=== PATIENT | male | born 1935 | race Caucasian/White ===

== ENCOUNTER → 2017-10-16 | Outpatient (CLI) | payer MEDICARE, MEDICAID ==
[2017-10-16 14:55] LABS: BASO # 0.1 10^3/uL (0.0-0.2); BASO % 1.1 % (0.0-1.0); EOS % 0.4 % (0.0-3.0); HEMATOCRIT 51.1 % (42.0-52.0); HEMOGLOBIN 17.8 g/dl (13.5-17.5); IMMATURE GRANULOCYTE % 0.2 % (0-3.0); LYMPH # 1.8 10^3/uL (1.5-4.5); LYMPH % 33.3 % (24.0-44.0); MEAN CORPUSCULAR HEMOGLOBIN 31.3 pg (27.0-33.0); MEAN CORPUSCULAR HGB CONC 34.8 g/dl (32.0-36.5); MONO # 0.6 10^3/uL (0.0-0.8); MONO % 11.8 % (0.0-5.0); NEUTROPHILS # 2.9 10^3/uL (1.8-7.7); NEUTROPHILS % 53.2 % (36.0-66.0); PLATELET COUNT, AUTOMATED 235 10^3/uL (150-450); RED BLOOD COUNT 5.68 10^6/uL (4.30-6.10); RED CELL DISTRIBUTION WIDTH 13.2 % (11.5-14.5); WHITE BLOOD COUNT 5.4 10^3/uL (4.0-10.0)
[2017-10-16 15:25] LABS: ALBUMIN 3.8 GM/DL (3.2-5.2); ALBUMIN/GLOBULIN RATIO 0.88 (1.00-1.93); ALKALINE PHOSPHATASE 105 U/L (45-117); ALT/SGPT 23 U/L (12-78); ANION GAP 6 MEQ/L (8-16); AST/SGOT 29 U/L (7-37); BILIRUBIN,TOTAL 1.4 MG/DL (0.2-1.0); BLOOD UREA NITROGEN 18 MG/DL (7-18); CALCIUM LEVEL 9.4 MG/DL (8.8-10.2); CARBON DIOXIDE LEVEL 31 MEQ/L (21-32); CHLORIDE LEVEL 104 MEQ/L (98-107); CREATININE FOR GFR 1.07 MG/DL (0.70-1.30); GLOMERULAR FILTRATION RATE > 60.0 (>35); GLUCOSE, FASTING 109 MG/DL (70-100); POTASSIUM SERUM 3.2 MEQ/L (3.5-5.1); SODIUM LEVEL 141 MEQ/L (136-145); TOTAL PROTEIN 8.1 GM/DL (6.4-8.2)
== END ==
LOC: M LAB 14:18
DX: I10 Essential (primary) hypertension (principal); Z51.81 Encounter for therapeutic drug level monitoring; Z79.899 Other long term (current) drug therapy
CPT/HCPCS: 80053

== ENCOUNTER → 2017-12-08 | Outpatient (CLI) | payer MEDICARE, MEDICAID ==
[2017-12-08 15:22] LABS: ALBUMIN 3.5 GM/DL (3.2-5.2); ALBUMIN/GLOBULIN RATIO 0.97 (1.00-1.93); ALKALINE PHOSPHATASE 94 U/L (45-117); ALT/SGPT 45 U/L (12-78); ANION GAP 10 MEQ/L (8-16); AST/SGOT 53 U/L (7-37); BLOOD UREA NITROGEN 23 MG/DL (7-18); CALCIUM LEVEL 8.4 MG/DL (8.8-10.2); CARBON DIOXIDE LEVEL 26 MEQ/L (21-32); CHLORIDE LEVEL 107 MEQ/L (98-107); CREATININE FOR GFR 1.13 MG/DL (0.70-1.30); GLOMERULAR FILTRATION RATE > 60.0 (>35); GLUCOSE, FASTING 106 MG/DL (70-100); POTASSIUM SERUM 3.7 MEQ/L (3.5-5.1); SODIUM LEVEL 143 MEQ/L (136-145); TOTAL PROTEIN 7.1 GM/DL (6.4-8.2)
== END ==
LOC: M LAB 14:47
DX: E87.6 Hypokalemia (principal); R06.02 Shortness of breath; J84.9 Interstitial pulmonary disease, unspecified
CPT/HCPCS: 71046

== ENCOUNTER 2017-12-11 09:19 | Emergency (ER) | payer MEDICARE, MEDICAID ==
[2017-12-11 10:17] LABS: BASO % 0.5 % (0.0-1.0); EOS % 0.3 % (0.0-3.0); HEMOGLOBIN 16.9 g/dl (13.5-17.5); IMMATURE GRANULOCYTE % 0.2 % (0-3.0); LYMPH # 1.7 10^3/uL (1.5-4.5); LYMPH % 25.3 % (24.0-44.0); MEAN CORPUSCULAR HEMOGLOBIN 31.4 pg (27.0-33.0); MEAN CORPUSCULAR HGB CONC 35.2 g/dl (32.0-36.5); MEAN CORPUSCULAR VOLUME 89.1 fl (80.0-96.0); MONO # 0.6 10^3/uL (0.0-0.8); MONO % 8.3 % (0.0-5.0); NEUTROPHILS # 4.4 10^3/uL (1.8-7.7); NEUTROPHILS % 65.4 % (36.0-66.0); PLATELET COUNT, AUTOMATED 228 10^3/uL (150-450); RED BLOOD COUNT 5.39 10^6/uL (4.30-6.10); RED CELL DISTRIBUTION WIDTH 13.7 % (11.5-14.5); WHITE BLOOD COUNT 6.7 10^3/uL (4.0-10.0)
[2017-12-11 10:58] LABS: ALBUMIN 3.5 GM/DL (3.2-5.2); ALBUMIN/GLOBULIN RATIO 0.83 (1.00-1.93); ALKALINE PHOSPHATASE 86 U/L (45-117); ALT/SGPT 50 U/L (12-78); ANION GAP 11 MEQ/L (8-16); AST/SGOT 57 U/L (7-37); BILIRUBIN,DIRECT 0.5 MG/DL (0.0-0.2); BILIRUBIN,TOTAL 2.1 MG/DL (0.2-1.0); BLOOD UREA NITROGEN 15 MG/DL (7-18); CALCIUM LEVEL 8.5 MG/DL (8.8-10.2); CARBON DIOXIDE LEVEL 24 MEQ/L (21-32); CHLORIDE LEVEL 102 MEQ/L (98-107); GLOMERULAR FILTRATION RATE > 60.0 (>35); GLUCOSE, FASTING 113 MG/DL (70-100); SODIUM LEVEL 137 MEQ/L (136-145); TOTAL PROTEIN 7.7 GM/DL (6.4-8.2)
[2017-12-11 11:16] LABS: POTASSIUM SERUM 2.9 MEQ/L (3.5-5.1)
[2017-12-11 11:24] LABS: CPK CREATINE PHOSPHOKINASE 560 U/L (39-308); TROPONIN I 0.13 NG/ML (< 0.10)
[2017-12-11 11:25] LABS: CK-MB VALUE MASS 14.7 NG/ML (<3.6); MB/CK RELATIVE INDEX 2.62 (< OR =4); NT-PRO BNP 7288 PG/ML (<450)
== END 2017-12-11 11:22 | disposition left against medical advice (07) ==
LOC: M ED 09:19
DX: R06.00 Dyspnea, unspecified (principal); I10 Essential (primary) hypertension; F41.9 Anxiety disorder, unspecified; Z79.899 Other long term (current) drug therapy
CPT/HCPCS: 82550

== ENCOUNTER 2017-12-17 00:21 | Inpatient (IN) | payer MEDICARE, MEDICAID ==
[2017-12-17 00:54] LABS: VENOUS HCO3 27.3 MEQ/L (23.0-27.0); VENOUS O2 SATURATION 38.9 % (60.0-80.0); VENOUS PARTIAL PRESSURE O2 26.2 mmHg (30.0-50.0); VENOUS PH 7.329 UNITS (7.330-7.430); VENOUS STANDARD HCO3 22.7 MEQ/L; VENOUS TOTAL CO2 28.9 MEQ/L (24.0-28.0)
[2017-12-17 00:55] LABS: BASO # 0.1 10^3/uL (0.0-0.2); BASO % 0.5 % (0.0-1.0); EOS # 0.1 10^3/uL (0.0-0.50); EOS % 0.7 % (0.0-3.0); HEMATOCRIT 51.9 % (42.0-52.0); HEMOGLOBIN 17.5 g/dl (13.5-17.5); IMMATURE GRANULOCYTE % 0.2 % (0-3.0); LYMPH # 1.7 10^3/uL (1.5-4.5); MEAN CORPUSCULAR HEMOGLOBIN 31.6 pg (27.0-33.0); MEAN CORPUSCULAR HGB CONC 33.7 g/dl (32.0-36.5); MEAN CORPUSCULAR VOLUME 93.9 fl (80.0-96.0); MONO # 0.4 10^3/uL (0.0-0.8); MONO % 4.2 % (0.0-5.0); NEUTROPHILS # 7.9 10^3/uL (1.8-7.7); NEUTROPHILS % 77.4 % (36.0-66.0); PLATELET COUNT, AUTOMATED 226 10^3/uL (150-450); RED BLOOD COUNT 5.53 10^6/uL (4.30-6.10); RED CELL DISTRIBUTION WIDTH 14.6 % (11.5-14.5); WHITE BLOOD COUNT 10.2 10^3/uL (4.0-10.0)
[2017-12-17] MEDS: LORazepam 2 MG/ML VIAL (J2060) IV ×2 (00:58→07:15)
[2017-12-17] MEDS: ASPIRIN 81 MG CHEW TABLET PO (01:12)
[2017-12-17 01:22] LABS: ANION GAP 9 MEQ/L (8-16); BLOOD UREA NITROGEN 21 MG/DL (7-18); CALCIUM LEVEL 8.9 MG/DL (8.8-10.2); CARBON DIOXIDE LEVEL 30 MEQ/L (21-32); CHLORIDE LEVEL 102 MEQ/L (98-107); CK-MB VALUE MASS 10.6 NG/ML (<3.6); CPK CREATINE PHOSPHOKINASE 399 U/L (39-308); CREATININE FOR GFR 1.31 MG/DL (0.70-1.30); GLUCOSE, FASTING 125 MG/DL (70-100); MB/CK RELATIVE INDEX 2.65 (< OR =4); NT-PRO BNP 7234 PG/ML (<450); POTASSIUM SERUM 3.2 MEQ/L (3.5-5.1); SODIUM LEVEL 141 MEQ/L (136-145); TROPONIN I 0.16 NG/ML (< 0.10)
[2017-12-17] MEDS ORDERED: ISOVUE-370 76% 100ML VIAL (Q9967) As Ordered (01:53)
[2017-12-17 06:52] LABS: CK-MB VALUE MASS 5.8 NG/ML (<3.6); CPK CREATINE PHOSPHOKINASE 273 U/L (39-308); MB/CK RELATIVE INDEX 2.12 (< OR =4); TROPONIN I 0.18 NG/ML (< 0.10)
[2017-12-17 07:06] LABS: C REACTIVE PROTEIN QUANTITATIV 1.99 MG/DL (0.00-0.30)
[2017-12-17] MEDS: FUROSEMIDE 40 MG/4 ML VIAL (J1940) IV (07:15)
[2017-12-17] MEDS ORDERED: ONDANSETRON 4MG/2ML VIAL (J2405) IV (08:45)
[2017-12-17] MEDS ORDERED: VANCOMYCIN HCL 750 MG, VIAL MATE ADAPTER 1 EACH in D5W 250 ML IV (09:00)
[2017-12-17 09:28] LABS: APPEARANCE, URINE CLEAR (CLEAR); BACTERIA, URINE AUTO NEGATIVE (NEGATIVE); BILIRUBIN, URINE AUTO NEGATIVE (NEGATIVE); BLOOD, URINE BLOOD NEGATIVE (NEGATIVE); COLOR, URINE YELLOW (YELLOW); GLUCOSE, URINE (UA) AUTO NEGATIVE (NEGATIVE); KETONE, URINE AUTO NEGATIVE (NEGATIVE); LEUKOCYTE ESTERASE, URINE AUTO NEGATIVE (NEGATIVE); NITRITE, URINE AUTO NEGATIVE (NEGATIVE); PROTEIN, URINE AUTO 1+ mg/dL (NEGATIVE); RBC, URINE AUTO 3 /HPF (0-3); SPECIFIC GRAVITY URINE AUTO 1.016 (1.002-1.035); SQUAMOUS EPITHELIAL CELL UR AU 0 /HPF (0-6); UROBILINOGEN, URINE AUTO 0.2 mg/dL (0.0-2.0); WBC, URINE AUTO 0 /HPF (0-3)
[2017-12-17] MEDS: PIPERACILLIN/TAZOBACTAM SOD 3.375 GM in D5W MINI-BAG PLUS 50 ML IV ×3 (09:43→21:51)
[2017-12-17 09:44] LABS: ABG BASE EXCESS 1.6 (-2.0-2.0); ABG HCO3 23.5 MEQ/L (22.0-26.0); ABG O2 SATURATION 96.4 % (95.0-99.0); ABG PARTIAL PRESSURE CO2 30.6 mmHg (35.0-45.0); ABG PARTIAL PRESSURE O2 77.2 mmHg (75.0-100.0); ABG STANDARD HCO3 25.8 MEQ/L (22.0-26.0); ABG TOTAL CO2 24.4 MEQ/L (23.0-31.0); ABG pH (ARTERIAL) 7.503 UNITS (7.350-7.450)
[2017-12-17] MEDS: HEPARIN SOD (PORCINE) 5000 UNITS/ML VIAL SC ×3 (09:59→21:50)
[2017-12-17] MEDS: ACETAMINOPHEN TAB 650MG DOSE (2X325MG) PO ×2 (10:00→17:43)
[2017-12-17] MEDS: POTASSIUM CHLORIDE 10 MEQ SR TABLET PO ×3 (10:00→23:01)
[2017-12-17] MEDS: VANCOMYCIN HCL 1,000 MG, VIAL MATE ADAPTER 1 EACH in D5W 250 ML IV ×2 (11:18→12:31)
[2017-12-17] MEDS: TAMSULOSIN 0.4 MG CAP PO (12:31)
[2017-12-17 14:02] LABS: HEMATOCRIT 49.1 % (42.0-52.0); HEMOGLOBIN 16.5 g/dl (13.5-17.5); MEAN CORPUSCULAR HEMOGLOBIN 31.2 pg (27.0-33.0); MEAN CORPUSCULAR HGB CONC 33.6 g/dl (32.0-36.5); MEAN CORPUSCULAR VOLUME 92.8 fl (80.0-96.0); PLATELET COUNT, AUTOMATED 168 10^3/uL (150-450); RED BLOOD COUNT 5.29 10^6/uL (4.30-6.10); RED CELL DISTRIBUTION WIDTH 14.6 % (11.5-14.5); WHITE BLOOD COUNT 4.1 10^3/uL (4.0-10.0)
[2017-12-17 14:14] LABS: ADD MANUAL DIFFER YES; DIFF SLIDE NUMBER 133; POSITIVE MORPH POS FLAG
[2017-12-17 14:27] LABS: ALBUMIN 2.7 GM/DL (3.2-5.2); ALBUMIN/GLOBULIN RATIO 0.84 (1.00-1.93); ALKALINE PHOSPHATASE 60 U/L (45-117); ALT/SGPT 41 U/L (12-78); ANION GAP 11 MEQ/L (8-16); AST/SGOT 43 U/L (7-37); BANDS 14 % (< 11); BILIRUBIN,TOTAL 4.5 MG/DL (0.2-1.0); BLOOD UREA NITROGEN 20 MG/DL (7-18); CALCIUM LEVEL 8.2 MG/DL (8.8-10.2); CARBON DIOXIDE LEVEL 28 MEQ/L (21-32); CHLORIDE LEVEL 103 MEQ/L (98-107); CK-MB VALUE MASS 3.1 NG/ML (<3.6); CPK CREATINE PHOSPHOKINASE 215 U/L (39-308); GLOMERULAR FILTRATION RATE 51.9 (>35); GLUCOSE, FASTING 98 MG/DL (70-100); LYMPHOCYTES 18 % (16-52); MB/CK RELATIVE INDEX 1.44 (< OR =4); MONOCYTES 8 % (0-8); NEUTROPHILS 60 % (35-75); PLATELET ESTIMATE NORMAL (NORMAL); POIKILOCYTOSIS 1+; POTASSIUM SERUM 3.1 MEQ/L (3.5-5.1); SODIUM LEVEL 142 MEQ/L (136-145); TOTAL PROTEIN 5.9 GM/DL (6.4-8.2)
[2017-12-17 14:42] LABS: LACTIC ACID SEPSIS PROTOCOL 4.8 MMOL/L (0.4-2.0)
[2017-12-17] MEDS: NS 1,000 ML IV (16:04)
[2017-12-17] MEDS: NS 500 ML IV ×2 (18:15→21:53)
[2017-12-17 18:57] LABS: ANION GAP 9 MEQ/L (8-16); BLOOD UREA NITROGEN 24 MG/DL (7-18); CALCIUM LEVEL 7.9 MG/DL (8.8-10.2); CARBON DIOXIDE LEVEL 29 MEQ/L (21-32); CHLORIDE LEVEL 103 MEQ/L (98-107); CREATININE FOR GFR 1.65 MG/DL (0.70-1.30); GLOMERULAR FILTRATION RATE 42.9 (>35); GLUCOSE, FASTING 101 MG/DL (70-100); POTASSIUM SERUM 3.1 MEQ/L (3.5-5.1); SODIUM LEVEL 141 MEQ/L (136-145)
[2017-12-17 20:22] LABS: LACTIC ACID SEPSIS PROTOCOL 3.6 MMOL/L (0.4-2.0)
[2017-12-17 22:59] LABS: MAGNESIUM LEVEL 1.8 MG/DL (1.8-2.4)
[2017-12-18] MEDS: NS 1,000 ML IV (00:01)
[2017-12-18 01:19] LABS: CK-MB VALUE MASS 4.2 NG/ML (<3.6); CPK CREATINE PHOSPHOKINASE 255 U/L (39-308); MB/CK RELATIVE INDEX 1.64 (< OR =4); TROPONIN I 0.51 NG/ML (< 0.10)
[2017-12-18] MEDS: PIPERACILLIN/TAZOBACTAM SOD 3.375 GM in D5W MINI-BAG PLUS 50 ML IV ×4 (02:16→20:28)
[2017-12-18] MEDS: ASPIRIN 81 MG ENTERIC TAB PO ×2 (02:17→09:12)
[2017-12-18 05:48] LABS: HEMATOCRIT 48.3 % (42.0-52.0); HEMOGLOBIN 16.6 g/dl (13.5-17.5); MEAN CORPUSCULAR HEMOGLOBIN 31.6 pg (27.0-33.0); MEAN CORPUSCULAR HGB CONC 34.4 g/dl (32.0-36.5); PLATELET COUNT, AUTOMATED 159 10^3/uL (150-450); RED BLOOD COUNT 5.25 10^6/uL (4.30-6.10); RED CELL DISTRIBUTION WIDTH 14.8 % (11.5-14.5)
[2017-12-18 05:56] LABS: ADD MANUAL DIFFER YES; DIFF SLIDE NUMBER 54; POSITIVE MORPH POS FLAG
[2017-12-18 06:14] LABS: ANION GAP 9 MEQ/L (8-16); BLOOD UREA NITROGEN 29 MG/DL (7-18); CALCIUM LEVEL 7.8 MG/DL (8.8-10.2); CARBON DIOXIDE LEVEL 23 MEQ/L (21-32); CHLORIDE LEVEL 106 MEQ/L (98-107); CPK CREATINE PHOSPHOKINASE 274 U/L (39-308); CREATININE FOR GFR 1.39 MG/DL (0.70-1.30); GLOMERULAR FILTRATION RATE 52.3 (>35); GLUCOSE, FASTING 85 MG/DL (70-100); MAGNESIUM LEVEL 1.8 MG/DL (1.8-2.4); POTASSIUM SERUM 4.1 MEQ/L (3.5-5.1); SODIUM LEVEL 138 MEQ/L (136-145); TROPONIN I 0.66 NG/ML (< 0.10)
[2017-12-18 06:15] LABS: CK-MB VALUE MASS 7.2 NG/ML (<3.6); MB/CK RELATIVE INDEX 2.62 (< OR =4)
[2017-12-18] MEDS: HEPARIN SOD (PORCINE) 5000 UNITS/ML VIAL SC ×2 (06:18→13:01)
[2017-12-18 06:31] LABS: ATYPICAL LYMPH 1 % (0-5); BANDS 13 % (< 11); LYMPHOCYTES 20 % (16-52); MONOCYTES 9 % (0-8); NEUTROPHILS 57 % (35-75); PLATELET ESTIMATE NORMAL (NORMAL)
[2017-12-18 06:32] LABS: ANISOCYTOSIS 1+
[2017-12-18] MEDS: TAMSULOSIN 0.4 MG CAP PO (09:12)
[2017-12-18] MEDS ORDERED: LORazepam 0.5 MG TAB PO (09:15)
[2017-12-18] MEDS: LORazepam 2 MG/ML VIAL (J2060) IV (09:57)
[2017-12-18] MEDS: VANCOMYCIN HCL 1,000 MG, VIAL MATE ADAPTER 1 EACH in D5W 250 ML IV (13:00)
[2017-12-18] MEDS ORDERED: MIDAZOLAM INJ 2 MG/2 ML VIAL (J2250) As Ordered ×2 (14:25)
[2017-12-18] MEDS ORDERED: AMIODARONE HCL 150 MG/100 ML PREMIXED BAG (NEXTERONE) As Ordered (14:29)
[2017-12-18] MEDS: MIDAZOLAM INJ 2 MG/2 ML VIAL (J2250) IV (14:30)
[2017-12-18] MEDS: MAG SULF 1GM/100ML (MAG RUN) 1 GM in APPROPRIATE DILUENT 1 EA IV (15:01)
[2017-12-18] MEDS: AMIODARONE HCL 360 MG in APPROPRIATE DILUENT 1 EA IV ×2 (15:02→20:28)
[2017-12-18] MEDS: AMIODARONE HCL 150 MG in APPROPRIATE DILUENT 1 EA IV (15:02)
[2017-12-18 15:07] LABS: ABG BASE EXCESS -3.8 (-2.0-2.0); ABG HCO3 16.9 MEQ/L (22.0-26.0); ABG O2 SATURATION 99.9 % (95.0-99.0); ABG PARTIAL PRESSURE CO2 22.7 mmHg (35.0-45.0); ABG PARTIAL PRESSURE O2 243.7 mmHg (75.0-100.0); ABG STANDARD HCO3 21.5 MEQ/L (22.0-26.0); ABG TOTAL CO2 17.6 MEQ/L (23.0-31.0); ABG pH (ARTERIAL) 7.489 UNITS (7.350-7.450)
[2017-12-18 15:16] LABS: HEMATOCRIT 48.8 % (42.0-52.0); HEMOGLOBIN 16.5 g/dl (13.5-17.5); MEAN CORPUSCULAR HEMOGLOBIN 31.6 pg (27.0-33.0); MEAN CORPUSCULAR HGB CONC 33.8 g/dl (32.0-36.5); MEAN CORPUSCULAR VOLUME 93.5 fl (80.0-96.0); PLATELET COUNT, AUTOMATED 154 10^3/uL (150-450); RED BLOOD COUNT 5.22 10^6/uL (4.30-6.10); RED CELL DISTRIBUTION WIDTH 14.9 % (11.5-14.5); WHITE BLOOD COUNT 12.3 10^3/uL (4.0-10.0)
[2017-12-18 15:24] LABS: ADD MANUAL DIFFER YES; DIFF SLIDE NUMBER 332; POSITIVE MORPH POS FLAG
[2017-12-18 15:27] LABS: CPK CREATINE PHOSPHOKINASE 262 U/L (39-308)
[2017-12-18 15:29] LABS: CK-MB VALUE MASS 5.8 NG/ML (<3.6); INR 1.67; MB/CK RELATIVE INDEX 2.21 (< OR =4); PROTHROMBIN TIME 20.2 SECONDS (12.4-14.5)
[2017-12-18] MEDS ORDERED: HEPARIN SOD (PORCINE) 5000 UNITS/ML VIAL IV (15:30)
[2017-12-18 15:39] LABS: ALBUMIN 2.2 GM/DL (3.2-5.2); ALBUMIN/GLOBULIN RATIO 0.71 (1.00-1.93); ALKALINE PHOSPHATASE 50 U/L (45-117); ALT/SGPT 33 U/L (12-78); ANION GAP 10 MEQ/L (8-16); AST/SGOT 44 U/L (7-37); BILIRUBIN,TOTAL 4.4 MG/DL (0.2-1.0); BLOOD UREA NITROGEN 32 MG/DL (7-18); CALCIUM LEVEL 7.6 MG/DL (8.8-10.2); CARBON DIOXIDE LEVEL 25 MEQ/L (21-32); CHLORIDE LEVEL 103 MEQ/L (98-107); CK-MB VALUE MASS 5.7 NG/ML (<3.6); CPK CREATINE PHOSPHOKINASE 267 U/L (39-308); CREATININE FOR GFR 1.47 MG/DL (0.70-1.30); GLOMERULAR FILTRATION RATE 49.1 (>35); GLUCOSE, FASTING 156 MG/DL (70-100); MAGNESIUM LEVEL 2.1 MG/DL (1.8-2.4); MB/CK RELATIVE INDEX 2.13 (< OR =4); POTASSIUM SERUM 4.2 MEQ/L (3.5-5.1); SODIUM LEVEL 138 MEQ/L (136-145); TOTAL PROTEIN 5.3 GM/DL (6.4-8.2); TROPONIN I 0.75 NG/ML (< 0.10)
[2017-12-18 15:51] LABS: BANDS 16 % (< 11); LYMPHOCYTES 6 % (16-52); MONOCYTES 4 % (0-8); NEUTROPHILS 74 % (35-75)
[2017-12-18 15:52] LABS: PLATELET ESTIMATE NORMAL (NORMAL)
[2017-12-18] MEDS ORDERED: AMIODARONE 150MG/3ML INJ (J0282) (15:52)
[2017-12-18 16:10] LABS: ERYTHROCYTE SEDIMENTATION RATE 2 mm/hr (0-20)
[2017-12-18 16:13] LABS: PARTIAL THROMBOPLASTIN TIME 38.7 SECONDS (26.8-37.9)
[2017-12-18] MEDS: HEPARIN DRIP 25,000 UNITS in APPROPRIATE DILUENT 1 EA IV (16:33)
[2017-12-18] MEDS: ALPRAZolam 0.25 MG TAB PO (17:28)
[2017-12-18] MEDS: FUROSEMIDE 100 MG/10 ML VIAL (J1940) IV (18:19)
[2017-12-18] MEDS: ACETAMINOPHEN TAB 650MG DOSE (2X325MG) PO (19:43)
[2017-12-18] MEDS: ALPRAZolam 0.5 MG TAB PO (20:29)
[2017-12-18 21:57] LABS: PARTIAL THROMBOPLASTIN TIME 102.3 SECONDS (26.8-37.9)
[2017-12-19] MEDS: ALPRAZolam 0.5 MG TAB PO ×5 (00:18→20:36)
[2017-12-19] MEDS: ACETAMINOPHEN TAB 650MG DOSE (2X325MG) PO (00:19)
[2017-12-19] MEDS: PIPERACILLIN/TAZOBACTAM SOD 3.375 GM in D5W MINI-BAG PLUS 50 ML IV ×3 (03:37→14:49)
[2017-12-19 04:15] LABS: PARTIAL THROMBOPLASTIN TIME 99.5 SECONDS (26.8-37.9)
[2017-12-19 06:14] LABS: HEMATOCRIT 45.7 % (42.0-52.0); HEMOGLOBIN 15.7 g/dl (13.5-17.5); MEAN CORPUSCULAR HGB CONC 34.4 g/dl (32.0-36.5); MEAN CORPUSCULAR VOLUME 93.1 fl (80.0-96.0); PLATELET COUNT, AUTOMATED 143 10^3/uL (150-450); RED BLOOD COUNT 4.91 10^6/uL (4.30-6.10); RED CELL DISTRIBUTION WIDTH 14.8 % (11.5-14.5); WHITE BLOOD COUNT 16.5 10^3/uL (4.0-10.0)
[2017-12-19 06:18] LABS: ADD MANUAL DIFFER YES; DIFF SLIDE NUMBER 34; POSITIVE MORPH POS FLAG
[2017-12-19 06:57] LABS: ANION GAP 11 MEQ/L (8-16); BANDS 6 % (< 11); BLOOD UREA NITROGEN 42 MG/DL (7-18); CALCIUM LEVEL 7.7 MG/DL (8.8-10.2); CARBON DIOXIDE LEVEL 24 MEQ/L (21-32); CHLORIDE LEVEL 104 MEQ/L (98-107); GLOMERULAR FILTRATION RATE 38.8 (>35); GLUCOSE, FASTING 117 MG/DL (70-100); LYMPHOCYTES 10 % (16-52); MAGNESIUM LEVEL 2.5 MG/DL (1.8-2.4); MONOCYTES 4 % (0-8); NEUTROPHILS 80 % (35-75); POTASSIUM SERUM 3.7 MEQ/L (3.5-5.1); SODIUM LEVEL 139 MEQ/L (136-145); TROPONIN I 0.56 NG/ML (< 0.10)
[2017-12-19 06:58] LABS: CRENATED RBC 1+; PLATELET ESTIMATE NORMAL (NORMAL)
[2017-12-19] MEDS: HEPARIN DRIP 25,000 UNITS in APPROPRIATE DILUENT 1 EA IV ×2 (07:53→23:55)
[2017-12-19] MEDS: AMIODARONE HCL 360 MG in APPROPRIATE DILUENT 1 EA IV (07:53)
[2017-12-19] MEDS: TAMSULOSIN 0.4 MG CAP PO (08:15)
[2017-12-19 12:44] LABS: VANCOMYCIN LEVEL TROUGH 7.9 UG/ML (10.0-20.0)
[2017-12-19] MEDS: VANCOMYCIN HCL 1,000 MG, VIAL MATE ADAPTER 1 EACH in D5W 250 ML IV (13:35)
[2017-12-19] MEDS: CEFEPIME HCL 2 GM in D5W MINI-BAG PLUS 50 ML IV (17:31)
[2017-12-20] MEDS: ALPRAZolam 0.5 MG TAB PO ×2 (03:09→08:39)
[2017-12-20] MEDS: CEFEPIME HCL 2 GM in D5W MINI-BAG PLUS 50 ML IV ×2 (05:10→17:10)
[2017-12-20 05:23] LABS: HEMATOCRIT 41.6 % (42.0-52.0); HEMOGLOBIN 14.5 g/dl (13.5-17.5); MEAN CORPUSCULAR HEMOGLOBIN 32.2 pg (27.0-33.0); MEAN CORPUSCULAR HGB CONC 34.9 g/dl (32.0-36.5); MEAN CORPUSCULAR VOLUME 92.2 fl (80.0-96.0); PLATELET COUNT, AUTOMATED 134 10^3/uL (150-450); RED BLOOD COUNT 4.51 10^6/uL (4.30-6.10); RED CELL DISTRIBUTION WIDTH 14.6 % (11.5-14.5)
[2017-12-20 05:24] LABS: ADD MANUAL DIFFER YES; DIFF SLIDE NUMBER 26; POSITIVE MORPH POS FLAG
[2017-12-20 05:46] LABS: ANION GAP 8 MEQ/L (8-16); BLOOD UREA NITROGEN 47 MG/DL (7-18); CALCIUM LEVEL 7.8 MG/DL (8.8-10.2); CARBON DIOXIDE LEVEL 28 MEQ/L (21-32); CHLORIDE LEVEL 102 MEQ/L (98-107); CREATININE FOR GFR 1.37 MG/DL (0.70-1.30); GLOMERULAR FILTRATION RATE 53.2 (>35); GLUCOSE, FASTING 87 MG/DL (70-100); MAGNESIUM LEVEL 2.2 MG/DL (1.8-2.4); POTASSIUM SERUM 3.5 MEQ/L (3.5-5.1); SODIUM LEVEL 138 MEQ/L (136-145)
[2017-12-20 06:58] LABS: BANDS 5 % (< 11); EOSINOPHILS 1 % (0-5); LYMPHOCYTES 9 % (16-52); MONOCYTES 3 % (0-8); NEUTROPHILS 82 % (35-75); PLATELET ESTIMATE NORMAL (NORMAL)
[2017-12-20 06:59] LABS: PLATELET CLUMPS SMALL AMT
[2017-12-20] MEDS: TAMSULOSIN 0.4 MG CAP PO (08:39)
[2017-12-20] MEDS: AMIODARONE 200 MG TAB (PACERONE) PO ×2 (08:39→20:10)
[2017-12-20] MEDS: ASPIRIN 81 MG ENTERIC TAB PO (08:39)
[2017-12-20] MEDS: FUROSEMIDE 100 MG/10 ML VIAL (J1940) IV (08:40)
[2017-12-20] MEDS: VANCOMYCIN HCL 1,000 MG, VIAL MATE ADAPTER 1 EACH in D5W 250 ML IV (12:26)
[2017-12-20 12:45] LABS: PARTIAL THROMBOPLASTIN TIME 84.2 SECONDS (26.8-37.9)
[2017-12-20 14:04] LABS: VANCOMYCIN LEVEL TROUGH 10.8 UG/ML (10.0-20.0)
[2017-12-20] MEDS: HEPARIN DRIP 25,000 UNITS in APPROPRIATE DILUENT 1 EA IV (14:20)
[2017-12-20] MEDS ORDERED: SLF 3 ML SYR IV (18:15)
[2017-12-20] MEDS ORDERED: SODIUM CHLORIDE 0.9% INJ 10 ML SYR IV (18:15)
[2017-12-20] MEDS: SODIUM CHLORIDE 0.9% INJ 10 ML SYR IV (20:11)
[2017-12-20] MEDS: SLF 3 ML SYR IV (20:11)
[2017-12-20 21:02] LABS: PARTIAL THROMBOPLASTIN TIME 65.6 SECONDS (26.8-37.9)
[2017-12-21] MEDS: ACETAMINOPHEN TAB 650MG DOSE (2X325MG) PO (03:41)
[2017-12-21] MEDS: CEFEPIME HCL 2 GM in D5W MINI-BAG PLUS 50 ML IV ×2 (04:34→17:14)
[2017-12-21] MEDS: VANCOMYCIN HCL 1,000 MG, VIAL MATE ADAPTER 1 EACH in D5W 250 ML IV ×2 (05:42→23:49)
[2017-12-21] MEDS: HEPARIN DRIP 25,000 UNITS in APPROPRIATE DILUENT 1 EA IV ×2 (05:46→18:29)
[2017-12-21 06:10] LABS: BASO # 0.1 10^3/uL (0.0-0.2); BASO % 0.4 % (0.0-1.0); EOS # 0.1 10^3/uL (0.0-0.50); EOS % 0.9 % (0.0-3.0); HEMATOCRIT 41.1 % (42.0-52.0); HEMOGLOBIN 13.9 g/dl (13.5-17.5); LYMPH # 1.3 10^3/uL (1.5-4.5); LYMPH % 10.2 % (24.0-44.0); MEAN CORPUSCULAR HEMOGLOBIN 31.3 pg (27.0-33.0); MEAN CORPUSCULAR HGB CONC 33.8 g/dl (32.0-36.5); MEAN CORPUSCULAR VOLUME 92.6 fl (80.0-96.0); MONO % 7.8 % (0.0-5.0); NEUTROPHILS # 10.3 10^3/uL (1.8-7.7); NEUTROPHILS % 79.7 % (36.0-66.0); PLATELET COUNT, AUTOMATED 128 10^3/uL (150-450); RED BLOOD COUNT 4.44 10^6/uL (4.30-6.10); RED CELL DISTRIBUTION WIDTH 14.5 % (11.5-14.5); WHITE BLOOD COUNT 12.9 10^3/uL (4.0-10.0)
[2017-12-21 06:21] LABS: PARTIAL THROMBOPLASTIN TIME 92.1 SECONDS (26.8-37.9)
[2017-12-21 06:27] LABS: ANION GAP 7 MEQ/L (8-16); BLOOD UREA NITROGEN 39 MG/DL (7-18); CALCIUM LEVEL 8.2 MG/DL (8.8-10.2); CARBON DIOXIDE LEVEL 30 MEQ/L (21-32); CHLORIDE LEVEL 100 MEQ/L (98-107); CREATININE FOR GFR 1.23 MG/DL (0.70-1.30); GLOMERULAR FILTRATION RATE > 60.0 (>35); GLUCOSE, FASTING 106 MG/DL (70-100); MAGNESIUM LEVEL 2.2 MG/DL (1.8-2.4); POTASSIUM SERUM 3.2 MEQ/L (3.5-5.1); SODIUM LEVEL 137 MEQ/L (136-145)
[2017-12-21] MEDS: SLF 3 ML SYR IV ×3 (08:08→21:25)
[2017-12-21] MEDS: SODIUM CHLORIDE 0.9% INJ 10 ML SYR IV ×3 (08:08→21:24)
[2017-12-21] MEDS: POTASSIUM CHLORIDE 10 MEQ SR TABLET PO (08:10)
[2017-12-21] MEDS: AMIODARONE 200 MG TAB (PACERONE) PO ×2 (09:36→20:12)
[2017-12-21] MEDS: ASPIRIN 81 MG ENTERIC TAB PO (09:36)
[2017-12-21] MEDS: TAMSULOSIN 0.4 MG CAP PO (09:36)
[2017-12-22] MEDS: CEFEPIME HCL 2 GM in D5W MINI-BAG PLUS 50 ML IV (05:00)
[2017-12-22] MEDS: SLF 3 ML SYR IV ×3 (05:14→20:19)
[2017-12-22] MEDS: SODIUM CHLORIDE 0.9% INJ 10 ML SYR IV (05:14)
[2017-12-22 05:19] LABS: BASO # 0.1 10^3/uL (0.0-0.2); BASO % 0.7 % (0.0-1.0); EOS # 0.1 10^3/uL (0.0-0.50); HEMATOCRIT 42.7 % (42.0-52.0); HEMOGLOBIN 14.5 g/dl (13.5-17.5); IMMATURE GRANULOCYTE % 2.2 % (0-3.0); LYMPH # 1.2 10^3/uL (1.5-4.5); LYMPH % 13.3 % (24.0-44.0); MEAN CORPUSCULAR HEMOGLOBIN 31.3 pg (27.0-33.0); MEAN CORPUSCULAR VOLUME 92.2 fl (80.0-96.0); MONO % 10.8 % (0.0-5.0); NEUTROPHILS # 6.4 10^3/uL (1.8-7.7); PLATELET COUNT, AUTOMATED 152 10^3/uL (150-450); RED BLOOD COUNT 4.63 10^6/uL (4.30-6.10); RED CELL DISTRIBUTION WIDTH 14.6 % (11.5-14.5); WHITE BLOOD COUNT 8.8 10^3/uL (4.0-10.0)
[2017-12-22 05:32] LABS: PARTIAL THROMBOPLASTIN TIME 85.1 SECONDS (26.8-37.9)
[2017-12-22 05:42] LABS: ANION GAP 8 MEQ/L (8-16); BLOOD UREA NITROGEN 27 MG/DL (7-18); CALCIUM LEVEL 7.9 MG/DL (8.8-10.2); CARBON DIOXIDE LEVEL 30 MEQ/L (21-32); CHLORIDE LEVEL 103 MEQ/L (98-107); CREATININE FOR GFR 0.88 MG/DL (0.70-1.30); GLOMERULAR FILTRATION RATE > 60.0 (>35); GLUCOSE, FASTING 88 MG/DL (70-100); MAGNESIUM LEVEL 1.9 MG/DL (1.8-2.4); POTASSIUM SERUM 3.4 MEQ/L (3.5-5.1); SODIUM LEVEL 141 MEQ/L (136-145)
[2017-12-22] MEDS: TAMSULOSIN 0.4 MG CAP PO (09:15)
[2017-12-22] MEDS: ASPIRIN 81 MG ENTERIC TAB PO (09:15)
[2017-12-22] MEDS: AMIODARONE 200 MG TAB (PACERONE) PO ×2 (09:15→20:19)
[2017-12-22] MEDS: POTASSIUM CHLORIDE 10 MEQ SR TABLET PO (09:15)
[2017-12-22] MEDS: NYSTATIN 500,000 U/5 ML SUSP UDC SS ×2 (16:51→20:19)
[2017-12-22 17:28] LABS: VANCOMYCIN LEVEL TROUGH 9.9 UG/ML (10.0-20.0)
[2017-12-22] MEDS: VANCOMYCIN HCL 1,000 MG, VIAL MATE ADAPTER 1 EACH in D5W 250 ML IV (17:57)
[2017-12-23] MEDS: VANCOMYCIN HCL 1,000 MG, VIAL MATE ADAPTER 1 EACH in D5W 250 ML IV ×2 (05:13→16:07)
[2017-12-23] MEDS: SLF 3 ML SYR IV ×3 (05:13→21:31)
[2017-12-23 05:49] LABS: ANION GAP 5 MEQ/L (8-16); BLOOD UREA NITROGEN 20 MG/DL (7-18); CALCIUM LEVEL 7.8 MG/DL (8.8-10.2); CARBON DIOXIDE LEVEL 31 MEQ/L (21-32); CHLORIDE LEVEL 106 MEQ/L (98-107); CREATININE FOR GFR 0.82 MG/DL (0.70-1.30); GLOMERULAR FILTRATION RATE > 60.0 (>35); GLUCOSE, FASTING 107 MG/DL (70-100); MAGNESIUM LEVEL 1.8 MG/DL (1.8-2.4); POTASSIUM SERUM 3.6 MEQ/L (3.5-5.1); SODIUM LEVEL 142 MEQ/L (136-145)
[2017-12-23] MEDS: NYSTATIN 500,000 U/5 ML SUSP UDC SS ×3 (09:00→21:30)
[2017-12-23] MEDS: AMIODARONE 200 MG TAB (PACERONE) PO ×2 (09:00→21:31)
[2017-12-23] MEDS: ASPIRIN 81 MG ENTERIC TAB PO (09:00)
[2017-12-23] MEDS: TAMSULOSIN 0.4 MG CAP PO (09:00)
[2017-12-23] MEDS: DOCUSATE SODIUM 100 MG CAP PO ×2 (13:13→21:31)
[2017-12-23] MEDS: MIRALAX *UNIT DOSE* 17GM PACKET PO (13:13)
[2017-12-23] MEDS: HEPARIN SOD (PORCINE) 5000 UNITS/ML VIAL SQ ×2 (16:07→21:30)
[2017-12-24] MEDS: HEPARIN SOD (PORCINE) 5000 UNITS/ML VIAL SQ ×3 (05:06→21:21)
[2017-12-24] MEDS: VANCOMYCIN HCL 1,000 MG, VIAL MATE ADAPTER 1 EACH in D5W 250 ML IV ×2 (05:06→18:15)
[2017-12-24] MEDS: SLF 3 ML SYR IV ×3 (05:06→21:21)
[2017-12-24 05:51] LABS: ANION GAP 8 MEQ/L (8-16); BLOOD UREA NITROGEN 16 MG/DL (7-18); CARBON DIOXIDE LEVEL 30 MEQ/L (21-32); CHLORIDE LEVEL 104 MEQ/L (98-107); CREATININE FOR GFR 0.79 MG/DL (0.70-1.30); GLOMERULAR FILTRATION RATE > 60.0 (>35); GLUCOSE, FASTING 93 MG/DL (70-100); POTASSIUM SERUM 3.9 MEQ/L (3.5-5.1); SODIUM LEVEL 142 MEQ/L (136-145)
[2017-12-24] MEDS: ASPIRIN 81 MG ENTERIC TAB PO (08:19)
[2017-12-24] MEDS: TAMSULOSIN 0.4 MG CAP PO (08:19)
[2017-12-24] MEDS: DOCUSATE SODIUM 100 MG CAP PO ×2 (08:19→21:20)
[2017-12-24] MEDS: NYSTATIN 500,000 U/5 ML SUSP UDC SS ×3 (08:20→21:20)
[2017-12-24] MEDS: AMIODARONE 200 MG TAB (PACERONE) PO (08:20)
[2017-12-24] MEDS: MIRALAX *UNIT DOSE* 17GM PACKET PO (08:20)
[2017-12-24] MEDS: FUROSEMIDE 20 MG TAB PO (08:20)
[2017-12-24] MEDS: METOPROLOL TART 25 MG TABLET PO ×2 (14:21→21:20)
[2017-12-24 16:05] LABS: HEMATOCRIT 43.7 % (42.0-52.0); HEMOGLOBIN 14.9 g/dl (13.5-17.5); MEAN CORPUSCULAR HEMOGLOBIN 31.4 pg (27.0-33.0); MEAN CORPUSCULAR HGB CONC 34.1 g/dl (32.0-36.5); MEAN CORPUSCULAR VOLUME 92.2 fl (80.0-96.0); PLATELET COUNT, AUTOMATED 208 10^3/uL (150-450); RED BLOOD COUNT 4.74 10^6/uL (4.30-6.10); RED CELL DISTRIBUTION WIDTH 14.5 % (11.5-14.5); WHITE BLOOD COUNT 10.6 10^3/uL (4.0-10.0)
[2017-12-24 16:11] LABS: ADD MANUAL DIFFER YES; DIFF SLIDE NUMBER 106; POSITIVE MORPH POS FLAG
[2017-12-24 17:09] LABS: BEDSIDE GLUCOSE 113 MG/DL (83-110)
[2017-12-24 17:42] LABS: ATYPICAL LYMPH 5 % (0-5); EOSINOPHILS 2 % (0-5); LYMPHOCYTES 9 % (16-52); MONOCYTES 5 % (0-8); NEUTROPHILS 79 % (35-75)
[2017-12-24 17:43] LABS: PLATELET ESTIMATE NORMAL (NORMAL)
[2017-12-24] MEDS: ATORVASTATIN 20 MG TAB PO (21:21)
[2017-12-25] MEDS: SLF 3 ML SYR IV ×3 (05:33→21:24)
[2017-12-25] MEDS: HEPARIN SOD (PORCINE) 5000 UNITS/ML VIAL SQ ×3 (05:33→21:16)
[2017-12-25] MEDS: VANCOMYCIN HCL 1,000 MG, VIAL MATE ADAPTER 1 EACH in D5W 250 ML IV ×2 (05:33→18:51)
[2017-12-25 05:56] LABS: HEMOGLOBIN 13.4 g/dl (13.5-17.5); MEAN CORPUSCULAR HEMOGLOBIN 31.5 pg (27.0-33.0); MEAN CORPUSCULAR HGB CONC 33.5 g/dl (32.0-36.5); MEAN CORPUSCULAR VOLUME 94.1 fl (80.0-96.0); PLATELET COUNT, AUTOMATED 225 10^3/uL (150-450); RED BLOOD COUNT 4.25 10^6/uL (4.30-6.10); RED CELL DISTRIBUTION WIDTH 14.5 % (11.5-14.5); WHITE BLOOD COUNT 11.2 10^3/uL (4.0-10.0)
[2017-12-25 06:20] LABS: ANION GAP 6 MEQ/L (8-16); BLOOD UREA NITROGEN 16 MG/DL (7-18); CALCIUM LEVEL 8.2 MG/DL (8.8-10.2); CARBON DIOXIDE LEVEL 31 MEQ/L (21-32); CHLORIDE LEVEL 102 MEQ/L (98-107); CREATININE FOR GFR 0.97 MG/DL (0.70-1.30); GLOMERULAR FILTRATION RATE > 60.0 (>35); GLUCOSE, FASTING 83 MG/DL (70-100); MAGNESIUM LEVEL 1.8 MG/DL (1.8-2.4); POTASSIUM SERUM 3.6 MEQ/L (3.5-5.1); SODIUM LEVEL 139 MEQ/L (136-145)
[2017-12-25] MEDS: MIRALAX *UNIT DOSE* 17GM PACKET PO (08:49)
[2017-12-25] MEDS: NYSTATIN 500,000 U/5 ML SUSP UDC SS ×3 (08:49→21:17)
[2017-12-25] MEDS: DOCUSATE SODIUM 100 MG CAP PO ×2 (08:50→21:17)
[2017-12-25] MEDS: METOPROLOL TART 25 MG TABLET PO ×2 (08:50→21:00)
[2017-12-25] MEDS: TAMSULOSIN 0.4 MG CAP PO (08:51)
[2017-12-25] MEDS: FUROSEMIDE 20 MG TAB PO (08:51)
[2017-12-25] MEDS: ASPIRIN 81 MG ENTERIC TAB PO (08:51)
[2017-12-25] MEDS: AMIODARONE 200 MG TAB (PACERONE) PO (08:51)
[2017-12-25] MEDS: SODIUM CHLORIDE 0.9% INJ 10 ML SYR IV ×3 (15:14→21:17)
[2017-12-25 17:36] LABS: VANCOMYCIN LEVEL TROUGH 14.2 UG/ML (10.0-20.0)
[2017-12-25] MEDS: ATORVASTATIN 20 MG TAB PO (21:18)
[2017-12-26] MEDS: SLF 3 ML SYR IV ×3 (06:00→21:10)
[2017-12-26 06:11] LABS: HEMATOCRIT 46.6 % (42.0-52.0); HEMOGLOBIN 15.3 g/dl (13.5-17.5); MEAN CORPUSCULAR HEMOGLOBIN 30.8 pg (27.0-33.0); MEAN CORPUSCULAR HGB CONC 32.8 g/dl (32.0-36.5); PLATELET COUNT, AUTOMATED 254 10^3/uL (150-450); RED BLOOD COUNT 4.96 10^6/uL (4.30-6.10); RED CELL DISTRIBUTION WIDTH 14.2 % (11.5-14.5)
[2017-12-26] MEDS: SODIUM CHLORIDE 0.9% INJ 10 ML SYR IV ×3 (06:19→22:00)
[2017-12-26] MEDS: HEPARIN SOD (PORCINE) 5000 UNITS/ML VIAL SQ ×3 (06:19→21:09)
[2017-12-26] MEDS: VANCOMYCIN HCL 1,000 MG, VIAL MATE ADAPTER 1 EACH in D5W 250 ML IV ×2 (06:20→18:03)
[2017-12-26 06:21] LABS: ANION GAP 5 MEQ/L (8-16); BLOOD UREA NITROGEN 17 MG/DL (7-18); CALCIUM LEVEL 8.9 MG/DL (8.8-10.2); CARBON DIOXIDE LEVEL 29 MEQ/L (21-32); CHLORIDE LEVEL 102 MEQ/L (98-107); CREATININE FOR GFR 0.96 MG/DL (0.70-1.30); GLOMERULAR FILTRATION RATE > 60.0 (>35); GLUCOSE, FASTING 83 MG/DL (70-100); MAGNESIUM LEVEL 2.1 MG/DL (1.8-2.4); POTASSIUM SERUM 3.7 MEQ/L (3.5-5.1); SODIUM LEVEL 136 MEQ/L (136-145)
[2017-12-26] MEDS: MIRALAX *UNIT DOSE* 17GM PACKET PO (08:50)
[2017-12-26] MEDS: FUROSEMIDE 20 MG TAB PO (08:50)
[2017-12-26] MEDS: NYSTATIN 500,000 U/5 ML SUSP UDC SS ×3 (08:50→21:09)
[2017-12-26] MEDS: ASPIRIN 81 MG ENTERIC TAB PO (08:50)
[2017-12-26] MEDS: AMIODARONE 200 MG TAB (PACERONE) PO (08:51)
[2017-12-26] MEDS: DOCUSATE SODIUM 100 MG CAP PO ×2 (08:51→21:10)
[2017-12-26] MEDS: TAMSULOSIN 0.4 MG CAP PO (08:51)
[2017-12-26] MEDS: METOPROLOL TART 25 MG TABLET PO ×2 (08:51→21:10)
[2017-12-26] MEDS: traMADol 50 MG TAB PO (15:30)
[2017-12-26] MEDS: ATORVASTATIN 20 MG TAB PO (21:10)
[2017-12-27] MEDS: HEPARIN SOD (PORCINE) 5000 UNITS/ML VIAL SQ ×2 (05:15→15:33)
[2017-12-27] MEDS: SLF 3 ML SYR IV ×3 (05:15→21:28)
[2017-12-27] MEDS: VANCOMYCIN HCL 1,000 MG, VIAL MATE ADAPTER 1 EACH in D5W 250 ML IV ×2 (05:15→18:18)
[2017-12-27 08:01] LABS: HEMATOCRIT 43.9 % (42.0-52.0); HEMOGLOBIN 14.5 g/dl (13.5-17.5); MEAN CORPUSCULAR HEMOGLOBIN 30.9 pg (27.0-33.0); MEAN CORPUSCULAR VOLUME 93.4 fl (80.0-96.0); PLATELET COUNT, AUTOMATED 272 10^3/uL (150-450); RED CELL DISTRIBUTION WIDTH 14.1 % (11.5-14.5); WHITE BLOOD COUNT 10.3 10^3/uL (4.0-10.0)
[2017-12-27 08:18] LABS: ANION GAP 9 MEQ/L (8-16); BLOOD UREA NITROGEN 17 MG/DL (7-18); CALCIUM LEVEL 7.9 MG/DL (8.8-10.2); CARBON DIOXIDE LEVEL 28 MEQ/L (21-32); CHLORIDE LEVEL 104 MEQ/L (98-107); CREATININE FOR GFR 1.02 MG/DL (0.70-1.30); GLOMERULAR FILTRATION RATE > 60.0 (>35); GLUCOSE, FASTING 126 MG/DL (70-100); MAGNESIUM LEVEL 1.8 MG/DL (1.8-2.4); POTASSIUM SERUM 3.8 MEQ/L (3.5-5.1); SODIUM LEVEL 141 MEQ/L (136-145)
[2017-12-27] MEDS: MIRALAX *UNIT DOSE* 17GM PACKET PO (08:28)
[2017-12-27] MEDS: AMIODARONE 200 MG TAB (PACERONE) PO (08:29)
[2017-12-27] MEDS: ASPIRIN 81 MG ENTERIC TAB PO (08:29)
[2017-12-27] MEDS: DOCUSATE SODIUM 100 MG CAP PO ×2 (08:29→21:29)
[2017-12-27] MEDS: NYSTATIN 500,000 U/5 ML SUSP UDC SS ×3 (08:29→21:29)
[2017-12-27] MEDS: FUROSEMIDE 20 MG TAB PO (08:30)
[2017-12-27] MEDS: TAMSULOSIN 0.4 MG CAP PO (08:30)
[2017-12-27] MEDS: METOPROLOL TART 25 MG TABLET PO ×2 (08:30→21:29)
[2017-12-27] MEDS: traMADol 50 MG TAB PO (08:31)
[2017-12-27] MEDS ORDERED: ISOVUE-370 76% 100ML VIAL (Q9967) As Ordered (15:37)
[2017-12-27] MEDS ORDERED: HEPARIN SOD (PORCINE) 5000 UNITS/ML VIAL IV (19:45)
[2017-12-27 20:21] LABS: PARTIAL THROMBOPLASTIN TIME 32.4 SECONDS (26.8-37.9)
[2017-12-27] MEDS: ATORVASTATIN 20 MG TAB PO (21:29)
[2017-12-27] MEDS: HEPARIN DRIP 25,000 UNITS in APPROPRIATE DILUENT 1 EA IV (22:24)
[2017-12-28 05:11] LABS: HEMATOCRIT 44.1 % (42.0-52.0); HEMOGLOBIN 14.6 g/dl (13.5-17.5); MEAN CORPUSCULAR HEMOGLOBIN 30.9 pg (27.0-33.0); MEAN CORPUSCULAR HGB CONC 33.1 g/dl (32.0-36.5); MEAN CORPUSCULAR VOLUME 93.2 fl (80.0-96.0); PLATELET COUNT, AUTOMATED 294 10^3/uL (150-450); RED BLOOD COUNT 4.73 10^6/uL (4.30-6.10); RED CELL DISTRIBUTION WIDTH 13.9 % (11.5-14.5); WHITE BLOOD COUNT 9.3 10^3/uL (4.0-10.0)
[2017-12-28 05:19] LABS: ANION GAP 6 MEQ/L (8-16); BLOOD UREA NITROGEN 16 MG/DL (7-18); CALCIUM LEVEL 8.3 MG/DL (8.8-10.2); CARBON DIOXIDE LEVEL 30 MEQ/L (21-32); CHLORIDE LEVEL 103 MEQ/L (98-107); CREATININE FOR GFR 0.99 MG/DL (0.70-1.30); GLOMERULAR FILTRATION RATE > 60.0 (>35); GLUCOSE, FASTING 101 MG/DL (70-100); MAGNESIUM LEVEL 1.9 MG/DL (1.8-2.4); POTASSIUM SERUM 3.6 MEQ/L (3.5-5.1); SODIUM LEVEL 139 MEQ/L (136-145)
[2017-12-28 05:23] LABS: PARTIAL THROMBOPLASTIN TIME 112.4 SECONDS (26.8-37.9)
[2017-12-28] MEDS: VANCOMYCIN HCL 1,000 MG, VIAL MATE ADAPTER 1 EACH in D5W 250 ML IV (05:58)
[2017-12-28] MEDS: SLF 3 ML SYR IV ×3 (05:58→20:13)
[2017-12-28] MEDS: FUROSEMIDE 20 MG TAB PO (08:37)
[2017-12-28] MEDS: METOPROLOL TART 25 MG TABLET PO ×2 (08:37→20:12)
[2017-12-28] MEDS: TAMSULOSIN 0.4 MG CAP PO (08:37)
[2017-12-28] MEDS: ASPIRIN 81 MG ENTERIC TAB PO (08:37)
[2017-12-28] MEDS: DOCUSATE SODIUM 100 MG CAP PO ×2 (08:37→20:11)
[2017-12-28] MEDS: AMIODARONE 200 MG TAB (PACERONE) PO (08:37)
[2017-12-28] MEDS: MIRALAX *UNIT DOSE* 17GM PACKET PO (08:38)
[2017-12-28] MEDS: NYSTATIN 500,000 U/5 ML SUSP UDC SS ×3 (08:38→20:10)
[2017-12-28 12:28] LABS: PARTIAL THROMBOPLASTIN TIME 105.5 SECONDS (26.8-37.9)
[2017-12-28 14:51] LABS: PARTIAL THROMBOPLASTIN TIME 97.2 SECONDS (26.8-37.9)
[2017-12-28] MEDS: HEPARIN DRIP 25,000 UNITS in APPROPRIATE DILUENT 1 EA IV (15:51)
[2017-12-28] MEDS: ACETAMINOPHEN TAB 650MG DOSE (2X325MG) PO (20:11)
[2017-12-28] MEDS: RIVAROXABAN 15 MG TAB (XARELTO) PO (20:12)
[2017-12-28] MEDS: LINEZOLID 600MG TABLET (ZYVOX) PO (20:12)
[2017-12-28] MEDS: ATORVASTATIN 20 MG TAB PO (20:12)
[2017-12-29 05:29] LABS: HEMATOCRIT 42.7 % (42.0-52.0); HEMOGLOBIN 14.1 g/dl (13.5-17.5); MEAN CORPUSCULAR HEMOGLOBIN 30.7 pg (27.0-33.0); PLATELET COUNT, AUTOMATED 295 10^3/uL (150-450); RED BLOOD COUNT 4.59 10^6/uL (4.30-6.10); WHITE BLOOD COUNT 8.1 10^3/uL (4.0-10.0)
[2017-12-29 05:44] LABS: ANION GAP 8 MEQ/L (8-16); BLOOD UREA NITROGEN 15 MG/DL (7-18); C REACTIVE PROTEIN QUANTITATIV 8.06 MG/DL (0.00-0.30); CALCIUM LEVEL 8.4 MG/DL (8.8-10.2); CARBON DIOXIDE LEVEL 27 MEQ/L (21-32); CHLORIDE LEVEL 105 MEQ/L (98-107); CREATININE FOR GFR 1.02 MG/DL (0.70-1.30); GLOMERULAR FILTRATION RATE > 60.0 (>35); GLUCOSE, FASTING 96 MG/DL (70-100); MAGNESIUM LEVEL 1.8 MG/DL (1.8-2.4); POTASSIUM SERUM 3.4 MEQ/L (3.5-5.1); SODIUM LEVEL 140 MEQ/L (136-145)
[2017-12-29] MEDS: SLF 3 ML SYR IV ×3 (05:55→20:00)
[2017-12-29] MEDS: MIRALAX *UNIT DOSE* 17GM PACKET PO (08:47)
[2017-12-29] MEDS: RIVAROXABAN 15 MG TAB (XARELTO) PO ×2 (08:47→16:58)
[2017-12-29] MEDS: TAMSULOSIN 0.4 MG CAP PO (08:47)
[2017-12-29] MEDS: DOCUSATE SODIUM 100 MG CAP PO ×2 (08:47→20:00)
[2017-12-29] MEDS: LINEZOLID 600MG TABLET (ZYVOX) PO ×2 (08:48→20:00)
[2017-12-29] MEDS: METOPROLOL TART 25 MG TABLET PO ×2 (08:48→19:59)
[2017-12-29] MEDS: FUROSEMIDE 20 MG TAB PO (08:48)
[2017-12-29] MEDS: AMIODARONE 200 MG TAB (PACERONE) PO (08:48)
[2017-12-29] MEDS: ASPIRIN 81 MG ENTERIC TAB PO (08:48)
[2017-12-29] MEDS: NYSTATIN 500,000 U/5 ML SUSP UDC SS ×3 (08:49→19:59)
[2017-12-29] MEDS: POTASSIUM CHLORIDE 10 MEQ SR TABLET PO (08:49)
[2017-12-29] MEDS ORDERED: LORazepam 1 MG TAB PO (15:30)
[2017-12-29] MEDS: ATORVASTATIN 20 MG TAB PO (19:59)
[2017-12-29] MEDS: NITROGLYCERIN 2% OINT 1 GM *U/D* PKT TOP (23:44)
[2017-12-29 23:51] LABS: TROPONIN I 0.06 NG/ML (< 0.10)
[2017-12-30 05:11] LABS: HEMATOCRIT 39.4 % (42.0-52.0); HEMOGLOBIN 13.2 g/dl (13.5-17.5); MEAN CORPUSCULAR HEMOGLOBIN 31.1 pg (27.0-33.0); MEAN CORPUSCULAR HGB CONC 33.5 g/dl (32.0-36.5); MEAN CORPUSCULAR VOLUME 92.7 fl (80.0-96.0); PLATELET COUNT, AUTOMATED 298 10^3/uL (150-450); RED BLOOD COUNT 4.25 10^6/uL (4.30-6.10); RED CELL DISTRIBUTION WIDTH 14.1 % (11.5-14.5); WHITE BLOOD COUNT 7.1 10^3/uL (4.0-10.0)
[2017-12-30 05:31] LABS: CK-MB VALUE MASS 2.8 NG/ML (<3.6); CPK CREATINE PHOSPHOKINASE 65 U/L (39-308); TROPONIN I 0.05 NG/ML (< 0.10)
[2017-12-30 05:34] LABS: ANION GAP 7 MEQ/L (8-16); BLOOD UREA NITROGEN 16 MG/DL (7-18); C REACTIVE PROTEIN QUANTITATIV 5.94 MG/DL (0.00-0.30); CALCIUM LEVEL 7.9 MG/DL (8.8-10.2); CARBON DIOXIDE LEVEL 28 MEQ/L (21-32); CHLORIDE LEVEL 107 MEQ/L (98-107); CREATININE FOR GFR 1.06 MG/DL (0.70-1.30); GLOMERULAR FILTRATION RATE > 60.0 (>35); GLUCOSE, FASTING 90 MG/DL (70-100); MAGNESIUM LEVEL 1.7 MG/DL (1.8-2.4); SODIUM LEVEL 142 MEQ/L (136-145)
[2017-12-30] MEDS: SLF 3 ML SYR IV ×3 (06:17→21:34)
[2017-12-30] MEDS: NITROGLYCERIN 2% OINT 1 GM *U/D* PKT TOP ×4 (06:17→23:31)
[2017-12-30] MEDS: MAG SULF 1GM/100ML (MAG RUN) 1 GM in APPROPRIATE DILUENT 1 EA IV (06:18)
[2017-12-30] MEDS: MIRALAX *UNIT DOSE* 17GM PACKET PO (08:37)
[2017-12-30] MEDS: NYSTATIN 500,000 U/5 ML SUSP UDC SS ×3 (08:37→21:34)
[2017-12-30] MEDS: AMIODARONE 200 MG TAB (PACERONE) PO (08:38)
[2017-12-30] MEDS: DOCUSATE SODIUM 100 MG CAP PO ×2 (08:38→21:34)
[2017-12-30] MEDS: TAMSULOSIN 0.4 MG CAP PO (08:38)
[2017-12-30] MEDS: RIVAROXABAN 15 MG TAB (XARELTO) PO ×2 (08:38→17:25)
[2017-12-30] MEDS: FUROSEMIDE 20 MG TAB PO (08:38)
[2017-12-30] MEDS: ASPIRIN 81 MG ENTERIC TAB PO (08:38)
[2017-12-30] MEDS: LINEZOLID 600MG TABLET (ZYVOX) PO ×2 (08:38→21:34)
[2017-12-30] MEDS: METOPROLOL TART 25 MG TABLET PO (08:38)
[2017-12-30] MEDS: ATORVASTATIN 20 MG TAB PO (21:33)
[2017-12-31 05:53] LABS: HEMATOCRIT 41.6 % (42.0-52.0); HEMOGLOBIN 13.7 g/dl (13.5-17.5); MEAN CORPUSCULAR HEMOGLOBIN 30.9 pg (27.0-33.0); MEAN CORPUSCULAR HGB CONC 32.9 g/dl (32.0-36.5); MEAN CORPUSCULAR VOLUME 93.9 fl (80.0-96.0); PLATELET COUNT, AUTOMATED 347 10^3/uL (150-450); RED BLOOD COUNT 4.43 10^6/uL (4.30-6.10); RED CELL DISTRIBUTION WIDTH 14.1 % (11.5-14.5); WHITE BLOOD COUNT 6.7 10^3/uL (4.0-10.0)
[2017-12-31] MEDS: NITROGLYCERIN 2% OINT 1 GM *U/D* PKT TOP ×4 (05:56→23:29)
[2017-12-31] MEDS: SLF 3 ML SYR IV ×3 (05:57→20:04)
[2017-12-31 06:14] LABS: ANION GAP 8 MEQ/L (8-16); BLOOD UREA NITROGEN 14 MG/DL (7-18); C REACTIVE PROTEIN QUANTITATIV 6.02 MG/DL (0.00-0.30); CALCIUM LEVEL 8.5 MG/DL (8.8-10.2); CARBON DIOXIDE LEVEL 29 MEQ/L (21-32); CHLORIDE LEVEL 103 MEQ/L (98-107); CREATININE FOR GFR 1.08 MG/DL (0.70-1.30); GLOMERULAR FILTRATION RATE > 60.0 (>35); GLUCOSE, FASTING 97 MG/DL (70-100); MAGNESIUM LEVEL 2.1 MG/DL (1.8-2.4); POTASSIUM SERUM 3.5 MEQ/L (3.5-5.1); SODIUM LEVEL 140 MEQ/L (136-145)
[2017-12-31] MEDS: MIRALAX *UNIT DOSE* 17GM PACKET PO (09:00)
[2017-12-31] MEDS: NYSTATIN 500,000 U/5 ML SUSP UDC SS ×3 (09:11→20:04)
[2017-12-31] MEDS: LINEZOLID 600MG TABLET (ZYVOX) PO ×2 (09:11→20:04)
[2017-12-31] MEDS: FUROSEMIDE 20 MG TAB PO (09:11)
[2017-12-31] MEDS: RIVAROXABAN 15 MG TAB (XARELTO) PO ×2 (09:11→17:56)
[2017-12-31] MEDS: DOCUSATE SODIUM 100 MG CAP PO ×2 (09:12→20:04)
[2017-12-31] MEDS: AMIODARONE 200 MG TAB (PACERONE) PO (09:12)
[2017-12-31] MEDS: TAMSULOSIN 0.4 MG CAP PO (09:12)
[2017-12-31] MEDS: ASPIRIN 81 MG ENTERIC TAB PO (09:12)
[2017-12-31] MEDS: ATORVASTATIN 20 MG TAB PO (20:04)
[2017-12-31] MEDS: POTASSIUM CHLORIDE 10 MEQ SR TABLET PO (21:41)
[2017-12-31] MEDS: ACETAMINOPHEN TAB 650MG DOSE (2X325MG) PO (21:41)
[2018-01-01] MEDS: SLF 3 ML SYR IV ×2 (05:20→13:08)
[2018-01-01] MEDS: NITROGLYCERIN 2% OINT 1 GM *U/D* PKT TOP ×2 (05:21→11:50)
[2018-01-01 05:59] LABS: C REACTIVE PROTEIN QUANTITATIV 6.88 MG/DL (0.00-0.30)
[2018-01-01] MEDS: MIRALAX *UNIT DOSE* 17GM PACKET PO (09:00)
[2018-01-01] MEDS: NYSTATIN 500,000 U/5 ML SUSP UDC SS (09:30)
[2018-01-01] MEDS: ASPIRIN 81 MG ENTERIC TAB PO (09:30)
[2018-01-01] MEDS: FUROSEMIDE 20 MG TAB PO (09:31)
[2018-01-01] MEDS: LINEZOLID 600MG TABLET (ZYVOX) PO (09:31)
[2018-01-01] MEDS: DOCUSATE SODIUM 100 MG CAP PO (09:31)
[2018-01-01] MEDS: TAMSULOSIN 0.4 MG CAP PO (09:31)
[2018-01-01] MEDS: AMIODARONE 200 MG TAB (PACERONE) PO (09:31)
[2018-01-01] MEDS: RIVAROXABAN 15 MG TAB (XARELTO) PO (09:32)
== END 2018-01-01 17:17 | disposition home health service (06) | DRG 871 ==
LOC: M ICU 12-18 14:30 → M PCU 12-20 16:51 → M ED 00:21 → M ED INP 08:45 → M PCU 11:52
DX: A41.9 Sepsis, unspecified organism (principal); G93.41 Metabolic encephalopathy; I26.99 Other pulmonary embolism without acute cor pulmonale; I47.2 Ventricular tachycardia; N17.9 Acute kidney failure, unspecified; L03.116 Cellulitis of left lower limb; N13.30 Unspecified hydronephrosis; I45.2 Bifascicular block; R65.20 Severe sepsis without septic shock; I08.1 Rheumatic disorders of both mitral and tricuspid valves; I10 Essential (primary) hypertension; F41.9 Anxiety disorder, unspecified; E78.5 Hyperlipidemia, unspecified; Z79.82 Long term (current) use of aspirin; Z79.899 Other long term (current) drug therapy; E87.6 Hypokalemia; Z66 Do not resuscitate; I44.0 Atrioventricular block, first degree; Z96.642 Presence of left artificial hip joint; R33.9 Retention of urine, unspecified; F43.25 Adjustment disorder with mixed disturbance of emotions and conduct; K80.20 Calculus of gallbladder without cholecystitis without obstruction